=== PATIENT | female | born 1955 | race Caucasian/White ===

== ENCOUNTER 2016-10-04 08:22 | Day surgery (SDC) | payer OTHER ==
[~2016-10-04] VITALS: Ht 156.2 cm; Wt 56.3 kg
[~2016-10-04 08:22] MED LIST: ARTHROTEC 751 TABLET PO; ASPIR-LOW81 MG PO; DULOXETINE HCL60 MG PO; FLONASE16 G1 BOTH NARES; LIPITOR10 MG PO; MACA500 MG PO; MAGNESIUM OXID500 MG PO; MELATONIN10 M1 PO; NEURONTIN300 MG PO; OSTEO BI-FLEX1 EAC1 PO; TRAZODONE HCL50 MG PO; TUMERIC PO; TYLENOL ARTHRI650 MG PO; TYLENOL EXTRA500 MG PO; VALTREX1000 MG PO; [UNRECOGNIZED DRUG - OTHER] PO
== END 2016-10-04 11:30 | disposition home or self-care (01) ==
LOC: PAIN 08:22 → SDC 08:30 → PAIN 11:30
PROC: 3E0S33Z Introduction of Anti-inflammatory into Epidural Space, Percutaneous Approach (ICD-10-PCS; principal; 2016-10-04)
PROC: 3E0U3BZ Introduction of Anesthetic Agent into Joints, Percutaneous Approach (ICD-10-PCS; principal; 2016-10-04)
DX: M46.1 Sacroiliitis, not elsewhere classified (principal); F41.9 Anxiety disorder, unspecified; M54.2 Cervicalgia; G89.29 Other chronic pain; M47.816 Spondylosis without myelopathy or radiculopathy, lumbar region; M19.90 Unspecified osteoarthritis, unspecified site; M79.1 Myalgia; M53.3 Sacrococcygeal disorders, not elsewhere classified
CPT/HCPCS: J1030; J2250; J3010; S0020